=== PATIENT | male | born 1950 | race Caucasian/White ===

== ENCOUNTER → 2017-11-24 | Outpatient (CLI) | payer OTHER | LOC: FIMAGING 09:30 | PROVIDERS: ATTEND Family Medicine Sports Medicine | DX: M25.552 Pain in left hip (principal) ==

== ENCOUNTER → 2018-01-30 | Outpatient (CLI) | payer OTHER | LOC: FIMAGING 07:07 | PROVIDERS: ATTEND Family Medicine | DX: R94.02 Abnormal brain scan (principal); M50.321 Other cervical disc degeneration at C4-C5 level; M48.02 Spinal stenosis, cervical region ==

== ENCOUNTER → 2018-02-27 | Outpatient (CLI) | payer OTHER ==
[~2018-02-27] MED LIST: GADOBUTROL 10 ML VIAL IVP ONE
== END ==
LOC: FIMAGING 06:47
PROVIDERS: ATTEND Psychiatry & Neurology Neurology
DX: M50.30 Other cervical disc degeneration, unspecified cervical region (principal); M48.02 Spinal stenosis, cervical region; M99.71 Connective tissue and disc stenosis of intervertebral foramina of cervical region; G35 Multiple sclerosis
CPT/HCPCS: 70553; 72156; A9585; 82565-PO

== ENCOUNTER 2018-08-01 05:32 | Observation (INO) | payer OTHER ==
[2018-08-01] MEDS ORDERED: GABAPENTIN 300 MG CAP PO ONE (05:45)
[2018-08-01] MEDS ORDERED: ACETAMINOPHEN 500 MG TAB PO ONE (05:45)
[2018-08-01] MEDS ORDERED: ceFAZolin 2 GM/DEXTROSE 100 ML IV ONE (05:45)
[2018-08-01] MEDS ORDERED: LR 1,000 ML IV ONE (05:46)
[2018-08-01] MEDS ORDERED: SURGIFLO MATRIX KIT WITH THROMBIN 8 ML TP ONE (06:44)
[2018-08-01] MEDS ORDERED: CHLORHEXIDINE GLUC HIBICLENS 118 ML BTL TP ONE (06:44)
[2018-08-01] MEDS ORDERED: BACITRACIN 50,000 UNITS/10 ML SYR IRR ONE (06:44)
[2018-08-01] MEDS ORDERED: THROMBIN (BOVINE) 20,000 UNIT VIAL TP ONE (06:52)
--- NOTE | 2018-08-01 06:55 | PDHPUP ---
History & Physical Update H&P update statement: This history and physical update is based on an assessment of the patient which was completed after admission or registration (within 24 hours), but prior to the surgery/procedure. H&P update: H&P reviewed & patient examined, no change in patient's condition since H&P completed (Consents signed and site marked. All questions answered.)
[2018-08-01] MEDS ORDERED: DEXMEDETOMIDINE HCL 400 MCG in NS 100 ML IV SCH (07:00)
[2018-08-01] MEDS ORDERED: MIDAZOLAM 2 MG/2 ML VIAL ONE (07:05)
[2018-08-01] MEDS ORDERED: PROPOFOL/EMULSION 500 MG/50 ML BOTTLE IV ONE (07:08)
[2018-08-01] MEDS ORDERED: fentaNYL 100 MCG/2 ML INJ ONE (07:08)
[2018-08-01] MEDS ORDERED: ONDANSETRON 4 MG/2 ML VIAL ONE (07:47)
[2018-08-01] MEDS ORDERED: DEXAMETHASONE 4 MG/ML VIAL ONE (07:47)
[2018-08-01] MEDS ORDERED: RANITIDINE 50 MG/2 ML VIAL ONE (07:47)
[2018-08-01] MEDS ORDERED: LIDOCAINE 2% 5 ML SDV ONE (07:47)
[2018-08-01] MEDS ORDERED: ROCURONIUM 50 MG/5 ML VIAL ONE (07:47)
[2018-08-01] MEDS ORDERED: SUGAMMADEX SODIUM 200 MG/2 ML VIAL IVP ONE (07:47)
[2018-08-01] MEDS ORDERED: METOCLOPRAMIDE 10 MG/2 ML VIAL ONE (07:47)
[2018-08-01] MEDS ORDERED: ALBUMIN 25% 50 ML SOLN IV ONE (07:50)
[2018-08-01] MEDS ORDERED: ALBUMIN 5% 250 ML BOTTLE IV ONE (07:52)
[2018-08-01] MEDS ORDERED: LR 500 ML IV PRN (07:58)
[2018-08-01] MEDS ORDERED: ONDANSETRON 4 MG/2 ML VIAL IVP PRN ×2 (07:58→09:39)
[2018-08-01] MEDS ORDERED: NALOXONE HCL 0.4 MG/ML INJ IVP PRN (07:58)
[2018-08-01] MEDS ORDERED: ALBUTEROL 3 ML DEYVIAL IH PRN (07:58)
[2018-08-01] MEDS ORDERED: fentaNYL 100 MCG/2 ML INJ IVP PRN (07:58)
[2018-08-01] MEDS ORDERED: DEXAMETHASONE 4 MG/ML VIAL IVP PRN (07:58)
[2018-08-01] MEDS ORDERED: DIAZEPAM 5 MG/ML 1 ML SYR IVP PRN (07:58)
--- NOTE | 2018-08-01 07:58 | PDANEPAE ---
ANE Past Medical History - Cardiovascular History Hx Hypertension: No Hx Arrhythmias: No Hx Chest Pain: No Hx Coronary Artery / Peripheral Vascular Disease: No Hx CHF / Valvular Disease: No Hx Palpitations: No - Pulmonary History Hx COPD: No Hx Asthma/Reactive Airway Disease: No Hx Recent Upper Respiratory Infection: No Hx Oxygen in Use at Home: No Hx Sleep Apnea: No Sleep Apnea Screening Result - Last Documented: Negative - Neurologic History Hx Cerebrovascular Accident: No Hx Seizures: No Hx Dementia: No Neurologic History Comment: MS RECENTLY DXd - Endocrine History Hx Diabetes: No - Renal History Hx Renal Disorders: No - Liver History Hx Hepatic Disorders: No - Neurological & Psychiatric Hx Hx Neurological and Psychiatric Disorders: No - Cancer History Hx Cancer: No - Congenital Disorder History Hx Congenital Disorders: No - GI History Hx Gastrointestinal Disorders: No - Other Health History Other Health History: NEG - Chronic Pain History Chronic Pain: Yes (STIFF NECK) - Surgical History Prior Surgeries: KNEE SCOPE L. BONE SPUR R ANE Review of Systems Review of Systems: - Exercise capacity METS (RN): 5 METS ANE Patient History - Allergies Allergies/Adverse Reactions: No Known Allergies Allergy (Verified 05/18/14 19:48) - Home Medications Home Medications: Cholecalciferol Vit D3 [Vitamin D3 2000 units tab (OTC)] 4,000 units PO DAILY [Last Taken 07/26/18] Multivitamins [Multivitamin (*)] 1 each PO DAILY 07/17/18 [Last Taken 07/26/18] Teriflunomide [Aubagio] 14 mg PO DAILY 07/17/18 [Last Taken 08/01/18 0415] - NPO status NPO Since - Liquids (Date): 08/01/18 NPO Since - Liquids (Time): 04:15 NPO Since - Solids (Date): 07/31/18 NPO Since - Solids (Time): 20:30 - Smoking Hx Smoking Status: Never smoked - Family Anes Hx Family Hx Anesthesia Complications: NEG ANE Labs/Vital Signs - Vital Signs Blood Pressure: 123/87 Heart Rate: 74 Respiratory Rate: 16 O2 Sat (%): 95 Height: 170.18 cm Weight: 73.482 kg ANE Physical Exam - Airway Neck exam: FROM Mallampati Score: Class 1 Mouth exam: normal dental/mouth exam - Pulmonary Pulmonary: no respiratory distress, no rales or rhonchi, clear to auscultation - Cardiovascular Cardiovascular: regular rate and rhythym, no murmur, rub, or gallop - ASA Status ASA Status: II ANE Anesthesia Plan Anesthesia Plan: general endotracheal anesthesia Total IV Anesthesia: Yes
[2018-08-01] MEDS ORDERED: MIDAZOLAM 2 MG/2 ML VIAL IVP ONE (08:11)
[2018-08-01] MEDS ORDERED: PROPOFOL 200 MG/20 ML VIAL ONE (08:15)
[2018-08-01] MEDS ORDERED: LACTULOSE 20 GM/30 ML UDCUP PO PRN (09:39)
[2018-08-01] MEDS ORDERED: MAGNESIUM HYDROXIDE 30 ML UDCUP PO PRN (09:39)
[2018-08-01] MEDS ORDERED: POLYETHYLENE GLYCOL 3350 17 GM PKT PO PRN (09:39)
[2018-08-01] MEDS ORDERED: METHOCARBAMOL 750 MG TAB PO PRN (09:39)
[2018-08-01] MEDS ORDERED: ONDANSETRON DISINTEGRATING 4 MG TAB PO PRN (09:39)
[2018-08-01] MEDS ORDERED: BISACODYL 10 MG SUPP PR PRN (09:39)
[2018-08-01] MEDS ORDERED: diphenhydrAMINE 25 MG CAP PO PRN (09:39)
[2018-08-01] MEDS ORDERED: METHOCARBAMOL 1,000 MG in NS 50 ML IV ONE (09:42)
[2018-08-01] MEDS ORDERED: NS 1,000 ML IV SCH (09:45)
--- NOTE | 2018-08-01 09:48 | POSTOPPROG ---
Post Op Note Date of Operation: 08/01/18 Surgeon: Avila Nevarez Relay Engineer: Susana Anesthesia: GET(General Endotracheal) Pre-op Diagnosis: cervical stenosis Post-op Diagnosis: cervical stenosis Indication: cervical stensosis, failure of medical management Procedure: ACDF C5-7 Inf/Abcess present in the surg proc area at time of surgery?: No EBL: Minimal PA Addendum - Addendum .: S: posterior neck pain, resting comfortably O: NAD A&Ox3 MAEX4 5/5 and equal in BUE and BLE A/P 67y/o male s/p ACDF C5-7 -Optimize pain management -Advance diet as tolerated -Post op xrays pending -DVT prophx: TEDs, SCDs, Lovenox POD3 -Please notify NS with any change in neuro/motor exam
--- NOTE | 2018-08-01 10:12 | POSTANESTH ---
Post Anesthetic Evaluation Cardiovascular Status: Normal, Stable, Similar to Pre-Op Cond Respiratory Status: Normal, Stable, Similar to Pre-op Cond. Level of Consciousness/Mental Status: Moderately Sleepy Pain Control: Adequate, Prn Tx Ordered Nausea/Vomiting Control: Adequate, Prn Tx Ordered Complications Possibly Related to Anesthesia: None Noted
[2018-08-01] MEDS: oxyCODONE IR 5 MG TAB PO PRN ×2 (12:11→17:45)
[2018-08-01] MEDS: ACETAMINOPHEN 500 MG TAB PO SCH ×2 (14:42→21:03)
[2018-08-01] MEDS: ceFAZolin 2 GM/DEXTROSE 100 ML IV SCH ×2 (14:43→22:36)
[2018-08-01] MEDS: SENNOSIDES/DOCUSATE SODIUM TAB PO SCH (21:03)
[2018-08-01] MEDS: FAMOTIDINE 20 MG TAB PO SCH (21:03)
--- NOTE | 2018-08-01 21:07 | GOP ---
DATE OF OPERATION: 08/01/2018 SURGEON: Avila Nevarez MD WELDING PROCESS ENGINEER: ABRAM Louis. ANESTHESIA: General. PREOPERATIVE DIAGNOSIS: 1. C5 through C7 cervical stenosis with spondylosis. 2. Radiculopathy, myelopathy. 3. Treatment refractory to nonoperative intervention. POSTOPERATIVE DIAGNOSIS: 1. C5 through C7 cervical stenosis with spondylosis. 2. Radiculopathy, myelopathy. 3. Treatment refractory to nonoperative intervention. PROCEDURE PERFORMED: 1. Anterior arthrodesis with approach to C5, C6, and C7. 2. C5-C6 diskectomy with bilateral foraminotomies, osteophytectomies, and interbody fusion using a 7 mm titanium coated polyetheretherketone cage filled with a morcellized autograft. 3. C6-C7 diskectomy with bilateral foraminotomies, osteophytectomies, and interbody fusion using a 7 mm titanium coated polyetheretherketone cage filled with a morcellized autograft. 4. Anterior cervical fusion C5, C6, C7 with a 37.5 mm Medtronic Mantoloking translational plate. 5. Use of intraoperative fluoroscopy, less than 1 hour physician time. 6. Use of neuromonitoring. 7. Use of the operating microscope. FINDINGS: per imaging SPECIMENS: None. ESTIMATED BLOOD LOSS: 10 mL. INDICATIONS: The patient is a very pleasant gentleman who presented to our office with worsening neck pain and radiculopathy, and had evidence of spondylosis from C4 through C7 with the worst stenosis at C5-C6 and C6-C7. After discussion of the risks, benefits, and treatment alternatives and after failing nonoperative intervention, we decided to proceed forth with the surgery as described above. DESCRIPTION OF PROCEDURE: The patient was brought to the operating theater and underwent general endotracheal anesthesia without complications. He had Venodynes, DOUG hose, and the appropriate lines placed by Anesthesia. His head was placed supine on the operating table in slight extension. Using lateral fluoroscopy and a spinal needle, we picked our entry point to the C5 through C7 levels. This was marked as a transverse incision on the right side of his neck. This area was prepped and draped in the usual sterile surgical fashion. A time-out was completed per protocol and the patient received antibiotics within 1 hour of the incision. The incision was taken down with the scalpel blade and then using monopolar, taken down through subcutaneous tissues to the level of the platysma. The platysma was over-mined in the cranial and caudal directions. A Weitlaner was placed to maintain our exposure. We opened the fibers of the platysma cranially and caudally. Using both blunt and sharp dissection, we traveled in a plane medial to the carotid sheath and lateral to the esophagus and trachea to reach the prevertebral fascia. We placed a bayonetted needle into the disk space of C5-C6 and confirmed our level using lateral fluoroscopy. We elevated the longus coli muscle from the anterior vertebral bodies of C5, C6, and C7. Deep retractors were placed to maintain exposure. The microscope was brought into the field to assist with microscopic dissection and to maintain illumination and magnification. We started at the C5-6 level where we placed a [place] pin in C5 and C6 and placed C5-C6 into mild distraction. We completed a C5-C6 diskectomy with bilateral foraminotomies and osteophytectomies. We prepared the cartilaginous endplates and measured the interbody space. We placed a 7 mm titanium coated PEEK cage filled with morcellized autograft into the C5-C6 disk space. We removed the [place] pin from C5, placed it into C7 and placed C6-C7 into mild distraction. We completed a C6-C7 diskectomy with bilateral foraminotomies and osteophytectomies. We prepared the cartilaginous endplates and measured the interbody space. We placed a 7 mm titanium coated PEEK cage filled with morcellized autograft into the C6-7 disk space. We removed the [place] pins and drilled down the anterior osteophytes. We secured a 37.5 mm Tins.lytronic Mantoloking translational plate onto the vertebral bodies of C5 , C6, and C7. AP and lateral x-rays demonstrated good placement of the hardware. The wound was irrigated copiously with bacitracin irrigation. We then closed the wound in multiple layers using Vicryl sutures for the deep layers and Dermabond for the skin. The patient's wounds were dressed sterilely. He was then awakened, extubated, and taken to the recovery room in stable condition. There were no complications and no noted changes on neuromonitoring throughout the procedure. COMPLICATIONS: None. /[id number]/MODL MTDD
[2018-08-02] MEDS: oxyCODONE IR 5 MG TAB PO PRN ×3 (02:22→11:56)
[2018-08-02] MEDS: ACETAMINOPHEN 500 MG TAB PO SCH (05:43)
--- NOTE | 2018-08-02 06:57 | NEUSURGPN ---
Date of Surgery: 08/01/18 Post Op Day: 1 Assessment/Plan: Assessment: 67 y/o male s/p ACDF C5-7 POD #1 Plan: -s/p ACDF C5-C7: doing better this am with some expected neck pain -PT/OT/ST-pending this am -eating and drinking fine -voiding well -collar at all times-fitting well with no skin issues -Optimize pain management-doing well with tylenol and occasional oxycodone -Advance diet as tolerated -Post op xrays pending this am -DVT prophx: TEDs, SCDs, Lovenox POD3 -Please notify NS with any change in neuro/motor exam Subjective: Awake and alert. Pt with expected neck pain. Swallowing well. No jennings/cp/sob/ abd or gu complaints. No f/c/n/v/d. Objective: AAO x 3, PERRLA/EOMI no droop CN 2-12 grossly intact +lt touch 5/5 BUE/BLE = CDI neck soft and supple Neuro Check Frequency: per routine Urinary Catheter in Place: No - Physician Discussed Patient with Dr.: Geri Neurosurgery Physical Exam - Vitals, I&O, Labs I and O 08/01/18 08/02/18 08/03/18 05:59 05:59 05:59 Intake Total 1775 Output Total 725 Balance 1050 Weight 73.482 kg Intake: Oral (ml) 1660 IV Infused (ml) 115 ceFAZolin 2 GM/DEXTROSE 115 100 ml @ 200 mls/hr IV Q8H ERICA Rx#:[id number] Output: Urine (ml) 725 Urinal 725 Other: Intake Quantity Yes Sufficient Number of Voids Toilet 3 Urinal 1 Vital Signs Temp Pulse Resp BP Pulse Ox 36.7 C 96 16 114/68 93 08/02/18 03:29 08/02/18 03:29 08/02/18 03:29 08/02/18 03:29 08/02/18 03:29 ICD10 Worksheet Patient Problems: Problems Problem Status Onset Arthrodesis status Acute Cervical stenosis of spinal canal Acute - ICD10 Problem Qualifiers (1) Cervical stenosis of spinal canal (2) Arthrodesis status
[2018-08-02] MEDS: SENNOSIDES/DOCUSATE SODIUM TAB PO SCH (07:58)
[2018-08-02] MEDS: FAMOTIDINE 20 MG TAB PO SCH (07:58)
[2018-08-02 08:11] VITALS: BP 139/83
[2018-08-02] MEDS ORDERED: MULTIVITAMINS 1 EACH TAB PO SCH (09:00)
[2018-08-02] MEDS ORDERED: Teriflunomide [Aubagio] 14 MG PO SCH (09:00)
[2018-08-02] MEDS ORDERED: CHOLECALCIFEROL VIT D3 2,000 UNITS TAB/CAP PO SCH (09:00)
--- NOTE | 2018-08-02 11:22 | ASMTLACE ---
JODYE Length of stay for Answers: 2 days current admission Acuity / Level of Answers: No Care: Did the patient have an inpatient admission? Comorbidities - select Answers: Opioid dependence all that apply / Chronic pain # of Emergency department Answers: 0 visits in the last 6 months Score: 6 Date Signed: 08/02/2018 11:22 AM Electronically Signed By:FLAKITA Wen
--- NOTE | 2018-08-02 13:42 | ASMTCMCOM ---
CM Note CM Note Notes: Pt medically stable for d/c home with [facility]. [facility] was pre-arranged and cannot staff so [facility] can accept. Selene with [facility] to obtain [facility] order. Date Signed: 08/02/2018 01:41 PM Electronically Signed By:FLAKITA Wen
--- NOTE | 2018-08-02 15:53 | ASDISCHSUM ---
Discharge Information Plan Status:Home with Home Health Medically Cleared to Leave: Discharge Date:08/02/2018 12:00 PM CM D/C Disposition: ADT D/C Disposition:Home, Routine, Self-Care Projected Discharge Date:08/02/2018 11:00 AM Transportation at D/C: Discharge Delay Reason: Follow-Up Date:08/02/2018 11:00 AM Discharge Slot: Final Diagnosis: Placement Information Referral Type:*Home Health Care Services Referral ID:[id number] Provider Name:[facility] (formerly [facility]) [address] 2: City:[place] Selection Factors: State:[place] Patient Contact Information Contact Name:JOSE Relationship: Address: Work Phone: City:[place] Alternate Phone: State/Zip Code:[place] Email: Financial Information Financial Class:Medicare Advantage Plans Primary Plan Desc:[facility] Primary Plan Number:[id number] Secondary Plan Desc: Secondary Plan Number: Assessment Information LACE LACE Length of stay for Answers: 2 days current admission Acuity / Level of Answers: No Care: Did the patient have an inpatient admission? Comorbidities - select Answers: Opioid dependence all that apply / Chronic pain # of Emergency department Answers: 0 visits in the last 6 months Score: 6 Date Signed: 08/02/2018 11:22 AM Electronically Signed By:FLAKITA Wen [facility] CM Progress Note CM Note CM Note Notes: Pt medically stable for d/c home with [facility]. [facility] was pre-arranged and cannot staff so [facility] accept. Selene Mathias to obtain [facility] order. Date Signed: 08/02/2018 01:41 PM Electronically Signed By:FLAKITA Wen Intervention Information
[2018-08-04] MEDS ORDERED: ENOXAPARIN 40 MG/0.4 ML SYR SC SCH (09:00)
== END 2018-08-02 12:00 | disposition home health service (06) ==
LOC: F3N 05:32
PROVIDERS: ADMIT Neurological Surgery; ATTEND Neurological Surgery
PROC: 4A1004G Monitoring of Central Nervous Electrical Activity, Intraoperative, Open Approach (ICD-10-PCS; principal; 2018-08-01 07:15)
PROC: BR10YZZ Fluoroscopy of Cervical Spine using Other Contrast (ICD-10-PCS; principal; 2018-08-01 07:15)
PROC: 00NW0ZZ Release Cervical Spinal Cord, Open Approach (ICD-10-PCS; principal; 2018-08-01 07:15)
PROC: 0RG20A0 Fusion of 2 or more Cervical Vertebral Joints with Interbody Fusion Device, Anterior Approach, Anterior Column, Open Approach (ICD-10-PCS; principal; 2018-08-01 07:15)
DX: M48.02 Spinal stenosis, cervical region (principal); M50.022 Cervical disc disorder at C5-C6 level with myelopathy; M40.12 Other secondary kyphosis, cervical region; M50.322 Other cervical disc degeneration at C5-C6 level; M50.122 Cervical disc disorder at C5-C6 level with radiculopathy; M50.323 Other cervical disc degeneration at C6-C7 level; Z79.82 Long term (current) use of aspirin; E55.9 Vitamin D deficiency, unspecified; Z86.010 Personal history of colon polyps; G35 Multiple sclerosis
CPT/HCPCS: 22551; 22552; 72040; 76001; 92610; 97161; 97165; 97535; C1713; G0378; G8978; G8979; G8980; G8987; G8988; G8989; G8996; G8997; J0690; J1100; J2250; J2405; J2704; J2765; J2780; J2800; J3010; P9041; P9047

== ENCOUNTER → 2018-08-24 | Outpatient (CLI) | payer OTHER | LOC: FIMAGING 15:20 | PROVIDERS: ATTEND Psychiatry & Neurology Neurology | DX: G35 Multiple sclerosis (principal) | CPT/HCPCS: 70553; A9585; 82565-PO ==

== ENCOUNTER → 2018-09-11 | Outpatient (CLI) | payer OTHER | LOC: FIMAGING 10:56 | PROVIDERS: ATTEND Nurse Practitioner | DX: M40.12 Other secondary kyphosis, cervical region (principal); M48.02 Spinal stenosis, cervical region; Z98.1 Arthrodesis status ==

== ENCOUNTER → 2018-10-30 | Outpatient (CLI) | payer OTHER | LOC: FIMAGING 10:28 | PROVIDERS: ATTEND Physician Assistant | DX: M40.12 Other secondary kyphosis, cervical region (principal); M48.02 Spinal stenosis, cervical region; Z98.1 Arthrodesis status ==

== ENCOUNTER → 2019-01-29 | Outpatient (CLI) | payer OTHER | LOC: FLAB 15:34 ==